=== PATIENT | female | born 1985 | race Caucasian/White ===

== ENCOUNTER → 2017-10-04 19:19 | Outpatient (CLI) | payer MEDICAID, SELFPAY ==
[2017-10-06 16:20] LABS: HPV Reflexed? NOT INDICATED
== END ==
PROVIDERS: Family Provider Family Medicine; PCP Family Medicine; Visit Provider Obstetrics & Gynecology
DX: Z12.4 Encounter for screening for malignant neoplasm of cervix (principal); Z12.72 Encounter for screening for malignant neoplasm of vagina
CPT/HCPCS: 88175; G0145

== ENCOUNTER 2018-08-03 08:33 | Emergency (ER) | payer MEDICAID, SELFPAY ==
[2018-08-03 08:34] VITALS: BP 111/62; PULSE 79; RESP 20; TEMP 36.6; BMI 22.2
--- NOTE | 2018-08-03 08:35 | NURSING ---
NO OLD EKGS
--- NOTE | 2018-08-03 08:48 | EKG12_ITS ---
Test Reason : SYNCOPE Blood Pressure : / mmHG Vent. Rate : 075 BPM Atrial Rate : 075 BPM P-R Int : 132 ms QRS Dur : 086 ms QT Int : 388 ms P-R-T Axes : 061 065 069 degrees QTc Int : 433 ms Normal sinus rhythm Normal ECG Confirmed by BRITTNEY MONTALVO, ANAND ([id number]), news editor ALEKSANDER SNEED ([id number]) on 08/07/2018 10:56:32 AM Referred By: BLANCA Confirmed By:ANAND LUGO MD
--- NOTE | 2018-08-03 09:10 | ED.VIS.GEN ---
History of Present Illness Chief Complaint: Syncope Informant: Patient Onset: Today Context: Sudden Onset Timing: Intermittent Quality: Episode occurred after experiencing left anterior neck pain and coughing Location: At work Current Severity: Symptoms resolved other than total body numbness and movement right upper extremity/tremor Maximum Severity: Severe Worsened by: After experiencing pain and coughing Relieved by: Time Associated Symptoms: Tunnel vision, nausea and unresponsiveness Narrative: Patient is a 32-year-old female who presents from work after syncopal episode. She states she experienced anterior left neck pain followed by coughing. She became lightheaded. She states her vision began to tunnel and felt nauseous. She sat down because she was concerned she would pass out. She was found by coworkers on the floor. There was no seizure activity. There was no incontinence of urine or stool. She presently complains of total body numbness and tremor right upper extremity. There is no history of febrile seizures or seizure disorder. She denies prior episode. She denies history of smoking or drinking. Prior similar symptoms: No Recent Illness/Hospitalization: No - Past Medical History (1) No significant past medical history Status: Acute Past Medical History - Allergies and Home Meds Allergies/Adverse Reactions: Allergies No Known Allergies Allergy (Verified 08/03/18 08:45) Primary Care Physician: Juliette Hagan MD [STAFF PHYSICIAN] - Prior records reviewed: Yes Past Medical History: None Surgical History: no surgical history Lives: Spouse/ Significant Other Smoking Status: Never smoker Alcohol: None Drugs: None Review of Systems General: Denies: Chills, Fever, Malaise, Sweats, Weight loss Eyes: Reports: Visual changes - bilaterally. Denies: Blurred Vision - bilaterally, Diplopia ENT: Denies: Bilateral ear pain, Rhinorrhea, Sore throat Cardiovascular: Denies: Chest pain, Palpitations, Heart racing Respiratory: Reports: Cough. Denies: Dyspnea, Sputum, Dyspnea on exertion, Orthopnea, Paroxysmal nocturnal dyspnea Gastrointestinal: Reports: Nausea. Denies: Abdominal pain, Vomiting, Diarrhea Genitourinary: Denies: Dysuria, Hematuria, Frequency Musculoskeletal: Denies: Myalgias, Arthralgias, Neck pain, Back pain, Swelling, Extremity Pain Neurological: Reports: Parasthesia. Denies: Headache, Weakness, Numbness, -, - Psych: Denies: Depression, Anxiety Hematologic: Denies: Easy bruising, Easy bleeding Allergy: Denies: Uticaria, Swelling of the mouth Physical Exam Vital Signs/Narrative: Vital Signs Temp Pulse Resp BP 08/03/18 08:34 97.9 F 79 20 H 111/62 Inital Vital Signs reviewed: Yes General: Well nourished, Well developed, No Acute Distress Head: Normocephalic, Atraumatic Eyes: Perrl, EOMI. Negative for: Pale conjunctiva, Scleral icterus, - ENT: Moist mucous membranes, No rhinorrhea, TM's clear, - - Patient has bilateral [place]vosteck sign. Neck: Supple, Nontender, No JVD Cardiovascular: Regular rate, Regular rhythm, No murmurs, Normal S1, Normal S2 Respiratory: No distress, CTA bilaterally, Chest nontender Abdomen: Soft, Nontender, Nondistended, Normal bowel sounds, No masses Extremities: Nontender, No edema. Negative for: Calf Tenderness Skin: Normal color, No rash, No Trauma. Negative for: Cyanosis, Jaundice Neurological: Alert, Oriented x3, Cranial nerves II-XII grossly intact, Normal Strength, Normal Sensation, Normal DTR - DTR 3-4+ symmetric with 6-7 beats of clonus at the ankles. Negative Babinski sign., - - Patient has bilateral Chvosteck sign Psychological: - - Patient states she is slightly anxious. Diagnostic/Tx/Re-eval - Rhythm Strip Rhythm Strip: Sinus Rhythm Rate: 70 Ectopy: None - EKG Initial EKG Interpretation: Sinus Rhythm - Ventricular rate is 75. OR interval, QS duration. QT interval and axis are normal. The EKG is normal. - Medical Decision Making Episode occurred after pain and coughing consistent with vagal event. Will place on monitor to assess for dysrhythmia and EKG was obtained. Numbness positives Chvostek sign patient is hyperventilating presently. Patient was observed for greater than 1 hour. Her only symptom presently is feeling tired. Since there is no abnormality on EKG and monitor will discharge to home. ED Disposition - Plan for ED Patient: Disposition: Home or Assisted Living Diagnosis: Vasovagal syncope Instructions: ED Syncope Vasovagal Referrals: Juliette Hagan MD [STAFF PHYSICIAN] - As Needed
[2018-08-03 10:03] VITALS: BP 112/71; PULSE 67; RESP 14; O2SAT 100
== END 2018-08-03 10:04 | disposition home or self-care (01) ==
PROVIDERS: Emergency Provider Emergency Medicine; Family Provider Physician Assistant; PCP Physician Assistant
DX: R55 Syncope and collapse (principal)
CPT/HCPCS: 93005; 99283

== ENCOUNTER → 2020-05-29 15:53 | Outpatient (CLI) | payer MEDICAID, SELFPAY ==
[2020-06-03 03:06] LABS: Chlamydia By Nucleic Acid AMP Negative (Negative)
[2020-06-03 09:20] LABS: Gonococcus By Nucleic Acid AMP Negative (Negative)
[2020-06-03 20:13] LABS: HPV Reflexed? NOT INDICATED
== END ==
PROVIDERS: PCP Physician Assistant; Visit Provider Obstetrics & Gynecology
DX: Z12.4 Encounter for screening for malignant neoplasm of cervix (principal); Z11.3 Encounter for screening for infections with a predominantly sexual mode of transmission
CPT/HCPCS: 87491; 87591; 88175; G0145

== ENCOUNTER → 2020-10-16 14:20 | Outpatient (CLI) | payer MEDICAID, SELFPAY ==
[2020-10-20 20:09] LABS: Chlamydia By Nucleic Acid AMP Negative (Negative)
[2020-10-20 20:21] LABS: Gonococcus By Nucleic Acid AMP Negative (Negative)
== END ==
PROVIDERS: PCP Physician Assistant; Visit Provider Obstetrics & Gynecology
DX: Z11.3 Encounter for screening for infections with a predominantly sexual mode of transmission (principal)
CPT/HCPCS: 87491; 87591

== ENCOUNTER → 2021-12-23 | Outpatient (CLI) | payer MEDICAID, SELFPAY ==
[2021-12-25 00:06] LABS: Chlamydia By Nucleic Acid AMP Negative (Negative)
[2021-12-25 11:08] LABS: Gonococcus By Nucleic Acid AMP Negative (Negative)
[2021-12-28 16:14] LABS: HPV Reflexed? NOT INDICATED
== END | disposition home or self-care (01) ==
LOC: LABSPEC 10:15
PROVIDERS: PCP Physician Assistant; Visit Provider Obstetrics & Gynecology
DX: Z12.4 Encounter for screening for malignant neoplasm of cervix (principal); Z11.3 Encounter for screening for infections with a predominantly sexual mode of transmission
CPT/HCPCS: 87491; 87591; 88175; G0145